=== PATIENT | female | born 1995 | race African-American/Black ===

== ENCOUNTER 2017-08-23 19:26 | Outpatient (CLI) | payer OTHER | END 2017-08-23 20:20 | disposition home or self-care (01) | LOC: M LDO 19:26 | DX: O47.1 False labor at or after 37 completed weeks of gestation (principal); Z3A.39 39 weeks gestation of pregnancy; Z79.899 Other long term (current) drug therapy | CPT/HCPCS: 59025 ==

== ENCOUNTER 2017-08-25 00:14 | Inpatient (IN) | payer OTHER ==
[2017-08-25] MEDS ORDERED: LR 1,000 ML IV (02:17)
[2017-08-25] MEDS: LACTATED RINGER'S 1000 ML IV (02:30)
[2017-08-25 03:33] LABS: AMPHETAMINES URINE REFLEX NEGATIVE (NEGATIVE); BARBITURATES URINE REFLEX NEGATIVE (NEGATIVE); BENZODIAZEPINES URINE REFLEX NEGATIVE (NEGATIVE); CANNABINOIDS URINE REFLEX NEGATIVE (NEGATIVE); COCAINE METABOLITE URINE REFLE NEGATIVE (NEGATIVE); METHADONE URINE REFLEX NEGATIVE (NEGATIVE); OPIATES URINE REFLEX NEGATIVE (NEGATIVE); PHENCYCLIDINE URINE REFLEX NEGATIVE (NEGATIVE)
[2017-08-25] MEDS ORDERED: FENTANYL 2MCG/ML ROPIVACAINE 0.2% IN 0.9% NACL 200ML IVBAG As Ordered (03:33)
[2017-08-25 03:36] LABS: HEMATOCRIT 35.9 % (36.0-47.0); HEMOGLOBIN 11.7 g/dl (12.0-16.0); MEAN CORPUSCULAR HEMOGLOBIN 27.6 pg (27.0-33.0); MEAN CORPUSCULAR HGB CONC 32.6 g/dl (32.0-36.5); MEAN CORPUSCULAR VOLUME 84.7 fl (80.0-96.0); PLATELET COUNT, AUTOMATED 233 10^3/uL (150-450); RED BLOOD COUNT 4.24 10^6/uL (4.00-5.40); RED CELL DISTRIBUTION WIDTH 14.2 % (11.5-14.5)
[2017-08-25] MEDS ORDERED: OXYTOCIN 30 UNITS IN 0.9% NaCl 500ML IV BAG (J2590) As Ordered (03:52)
[2017-08-25] MEDS ORDERED: ONDANSETRON 4MG/2ML VIAL (J2405) IV (05:00)
[2017-08-25] MEDS ORDERED: EPIDURAL/PCA KEYS XX (05:00)
[2017-08-25] MEDS ORDERED: ePHEDrine SULFATE 25 MG/5 ML(5MG/ML) SYRINGE IV (05:00)
[2017-08-25] MEDS ORDERED: NALOXONE INJ 0.4 MG/1 ML VIAL (J2310) IV (05:00)
[2017-08-25] MEDS ORDERED: REFRIGERATOR IV KEYS XX (05:00)
[2017-08-25] MEDS ORDERED: FENTANYL/ROPIVACAINE/NACL BAG 200 ML EPIDURAL (05:00)
[2017-08-25] MEDS ORDERED: diphenhydrAMINE INJ 50MG/ML VIAL (J1200) IV (05:00)
[2017-08-25] MEDS ORDERED: EPIDURAL COMMENT XX (05:00)
[2017-08-25 06:31] LABS: CORD GAS ABE V -4.7; CORD GAS HCO3 V 21.1 MEQ/L; CORD GAS O2 SAT V 67.7 %; CORD GAS PCO2 V 41.7 mmHg; CORD GAS PH V 7.322 UNITS; CORD GAS SBC V 19.9 MEQ/L; CORD GAS TCO2 V 22.4 MEQ/L
[2017-08-25] MEDS ORDERED: OXYTOCIN DRIP 30 UNITS in APPROPRIATE DILUENT 1 EA IV (06:32)
[2017-08-25 06:33] LABS: CORD GAS ABE A -3.9; CORD GAS HCO3 A 23.6 MEQ/L; CORD GAS O2 SAT A 37.5 %; CORD GAS PCO2 A 52.2 mmHg; CORD GAS PH A 7.274 UNITS; CORD GAS PO2 A 21.2 mmHg; CORD GAS SBC A 19.7 MEQ/L; CORD GAS TCO2 A 25.3 MEQ/L
[2017-08-25] MEDS ORDERED: ANUSOL HC CREAM 30GM TOP (06:45)
[2017-08-25] MEDS ORDERED: MOM 30ML SUSPENSION UDC PO (06:45)
[2017-08-25] MEDS ORDERED: OXYTOCIN INJ 10 UNITS/ML VIAL (J2590) IV (06:45)
[2017-08-25] MEDS ORDERED: METHYLERGONOVINE MALEATE 0.2 MG TAB PO (06:45)
[2017-08-25] MEDS ORDERED: DIBUCAINE 1% OINTMENT 30GM TOP (06:45)
[2017-08-25] MEDS ORDERED: RHOGAM 300 MCG (1500 IU) INJ (J2790) IM (06:45)
[2017-08-25] MEDS ORDERED: MEASLES,MUMPS,RUBELLA VACCINE INJ (MMR-II) (90707) SC (06:45)
[2017-08-25] MEDS ORDERED: OXYTOCIN INJ 10 UNITS/ML VIAL (J2590) As Ordered (07:32)
[2017-08-25] MEDS: IBUPROFEN 800 MG TAB PO (09:08)
[2017-08-25] MEDS: PRENATAL VITAMINS CHEWABLE TABLET PO (09:08)
[2017-08-25] MEDS: ACETAMINOPHEN 500 MG TAB PO (23:16)
[2017-08-26 06:54] LABS: HEMATOCRIT 32.4 % (36.0-47.0); HEMOGLOBIN 10.6 g/dl (12.0-16.0); MEAN CORPUSCULAR HEMOGLOBIN 27.2 pg (27.0-33.0); MEAN CORPUSCULAR HGB CONC 32.7 g/dl (32.0-36.5); MEAN CORPUSCULAR VOLUME 83.3 fl (80.0-96.0); PLATELET COUNT, AUTOMATED 228 10^3/uL (150-450); RED BLOOD COUNT 3.89 10^6/uL (4.00-5.40); RED CELL DISTRIBUTION WIDTH 14.4 % (11.5-14.5); WHITE BLOOD COUNT 16.4 10^3/uL (4.0-10.0)
[2017-08-26] MEDS: PRENATAL VITAMINS CHEWABLE TABLET PO (08:19)
[2017-08-26] MEDS: DOCUSATE SODIUM 100 MG CAP PO (21:41)
[2017-08-26] MEDS: IBUPROFEN 800 MG TAB PO (21:51)
[2017-08-27] MEDS: PRENATAL VITAMINS CHEWABLE TABLET PO (09:33)
== END 2017-08-27 12:20 | disposition home or self-care (01) | DRG 775 ==
LOC: M LDO 00:14 → M LDI 02:15 → M OBS 08:41
PROC: 10E0XZZ Delivery of Products of Conception, External Approach (ICD-10-PCS; principal; 2017-08-25)
DX: O48.0 Post-term pregnancy (principal); Z3A.40 40 weeks gestation of pregnancy; O69.3XX0 Labor and delivery complicated by short cord, not applicable or unspecified; Z37.0 Single live birth

== ENCOUNTER 2018-04-30 14:15 | Emergency (ER) | payer OTHER ==
[2018-04-30] MEDS: CYCLOBENZAPRINE 10 MG TAB PO (18:00)
[2018-04-30] MEDS: KETOROLAC 60 MG/2 ML VIAL (J1885) IM (18:02)
== END 2018-04-30 18:26 | disposition home or self-care (01) ==
LOC: M ED 14:15
DX: M54.5 Low back pain (principal); V43.52XA Car driver injured in collision with other type car in traffic accident, initial encounter; Y92.410 Unspecified street and highway as the place of occurrence of the external cause; Y93.9 Activity, unspecified; Y99.9 Unspecified external cause status; J45.909 Unspecified asthma, uncomplicated; M41.9 Scoliosis, unspecified
CPT/HCPCS: J1885